=== PATIENT | male | born 1990 | race African-American/Black ===

== ENCOUNTER 2017-04-09 10:43 | Emergency (ER) | payer SELFPAY ==
[~2017-04-09] VITALS: Ht 167.6 cm; Wt 57.0 kg
[2017-04-09] MEDS ORDERED: KETOROLAC 30MG/ML VIAL IM ONE (16:00)
[2017-04-09 16:04] VITALS: BP 123/72
== END 2017-04-09 16:39 | disposition home or self-care (01) ==
LOC: ER 13:31
DX: S06.0X0A Concussion without loss of consciousness, initial encounter (principal); M62.838 Other muscle spasm; F17.200 Nicotine dependence, unspecified, uncomplicated; F12.10 Cannabis abuse, uncomplicated; V03.99XA Pedestrian with other conveyance injured in collision with car, pick-up truck or van, unspecified whether traffic or nontraffic accident, initial encounter; Y93.01 Activity, walking, marching and hiking; Y99.8 Other external cause status; Y92.410 Unspecified street and highway as the place of occurrence of the external cause
CPT/HCPCS: 96372; 99283; J1885